=== PATIENT | male | born 1935 | race Caucasian/White ===

== ENCOUNTER 2016-05-11 16:51 | Inpatient (IN) | payer MEDICARE, BC ==
--- NOTE | ~2016-05-11 | DS ---
Discharge Summary [facility] [address] [place]. [address] NAME: CAR TA : 34 STATUS : DIS IN PAT#: [id number] AGE: 80 ADM/REG DATE : 05/11/16 MR#: [id number] REPORT SERV DATE: 05/15/16 DICTATED BY: ROCIO PASTOR DATE: 05/14/16 REPORT STATUS : Draft TRANSCRIBED BY: MODL DATE: 05/14/16 ADMISSION DATE: 05/11/2016 DISCHARGE DATE: 05/14/2016 CHIEF COMPLAINT: Increased pain and hypotension with abnormal MRI. DISCHARGE DIAGNOSES: 1. Suspected metastatic prostate cancer. 2. Back pain with bony metastases status post kyphoplasty of L2 vertebral body. 3. Anemia. 4. Anorexia with weight loss, likely due to malignancy. 5. Acute renal failure with mild non-anion gap metabolic acidosis. 6. Hypotension, on multiple antihypertensives. HISTORY OF PRESENT ILLNESS: Please see full H and P by nurse practitioner, Hanna Wilkinson, from admission. HOSPITAL COURSE: 1. New diagnosis of suspected metastatic prostate cancer. The patient was admitted to the hospital with MRI concerning for multiple metastatic spinal lesions. The patient did have a biopsy of a lymph node by CT guidance per Radiology. At this point, the final pathology is pending, but the suspicion is this will likely be metastatic prostate cancer. He will have followup with Dr. Perales early next week. In the interim, he has been started on prednisone 10 mg daily. 2. Back pain, likely due to L2 compression fracture in addition to other bony metastatic lesions. The patient did have L2 kyphoplasty done on May 13. His back pain has improved. We will send him home with continued narcotic regimen as well as walker. He overall has been doing well. PT has seen him and recommended home with family. 3. Anemia, suspect this is likely related to an aggressive underlying malignancy. This is present on admission status post 2 units of blood with stable hemoglobin in the 8s. Follow up with Dr. Perales next week to continue to monitor blood work. 4. Acute renal failure with right hydronephrosis with mild metabolic acidosis. This is related to underlying malignancy. The patient was seen by Urology, did not feel like any stenting or procedures were needed. This largely resolved with resuscitation with IV fluids and holding blood pressure medications. His creatinine was 1.76 on admission and 1.11 at discharge. The patient was on p.o. sodium bicarb with bicarb of 22 this time at discharge. 5. Hypotension. The patient has history of hypertension, was on multiple antihypertensive medications with blood pressures in the 70s on admission. His blood pressure resolved to normal with holding these blood pressure medications in addition to IV resuscitation. We will continue to hold his medications at discharge. 6. Anorexia weight loss, likely related to underlying malignancy. He has been started on Marinol. This again can be followed up outpatient with Dr. Perales. PERTINENT LABORATORY DATA: At discharge, hemoglobin is 8.1, white blood cell count 9.5, platelet count of 162. BMP is grossly unremarkable with creatinine of 1.11. Discharge Summary [address] [address] NAME: CAR TA : 34 STATUS : DIS IN PAT#: [id number] AGE: 80 ADM/REG DATE : 05/11/16 MR#: [id number] REPORT SERV DATE: 05/15/16 DICTATED BY: ROCIO PASTOR DATE: 05/14/16 REPORT STATUS : Draft TRANSCRIBED BY: EZEQUIEL DATE: 05/14/16 FOLLOWUP: Follow up will be with Dr. Perales next week. DISCHARGE MEDICATIONS: Marinol 2.5 mg p.o. b.i.d., Synthroid 150 mcg daily, Prilosec 20 mg at bedtime, prednisone 10 mg daily, multivitamin, Benadryl p.r.n. for sleep, aspirin 81 mg, Proscar 5 mg in the evening. I will verify this is okay to continue with Urology and [place]ard p.r.n. PERTINENT IMAGING: This admission, an MRI limited to lumbar spine prior to kyphoplasty did show widespread metastatic disease involving T11-S1 with associated large retroperitoneal nodes. There is evidence for some cortical disruption at L1, L2, L3. Consistent with early extraosseous spread which could explain some individual nerve compressions. Time spent on this discharge is greater than 30 minutes including discussion with Dr. Perales, the patient and family as well as shelter case manager. KENNEDI/EZEQUIEL Rocio Pastor MD / [id number]
--- NOTE | ~2016-05-11 | HP ---
History And Physical [place] [id number] [facility] [place]. [address] NAME: CAR TA : 34 STATUS : ADM IN [facility]#: [id number] AGE: 80 ADM/REG DATE : 05/11/16 MR#: [id number] REPORT SERV DATE: 05/11/16 DICTATED BY: MEHUL WILKINSON DATE: 05/11/16 REPORT STATUS : Draft TRANSCRIBED BY: MODL DATE: 05/11/16 DATE OF ADMISSION: 05/11/2016 REASON FOR ADMISSION: Increased pain and hypotension. HISTORY OF PRESENT ILLNESS: The patient is an 80-year-old gentleman, who was a direct admission from Dr. Perales of [facility] office. The patient presented to Dr. Perales's office as a new patient consult for metastatic cancer to the spine, anemia, acute renal failure, and hypotension. The patient presents with a history of hypertension, hypothyroidism, and benign prostatic hypertrophy. The patient stated an ongoing complaint of low back pain beginning approximately 03/2016. The patient stated he was having increased low back pain, had been seeing a chiropractor, had also noticed 25 pounds weight loss since 02/2016. The patient's hemoglobin checked at his primary care's office on 05/04/2016 was 7.7, the patient's hemoglobin today in Dr. Perales's office was 6.5. The patient's primary care physician also noted a creatinine of 1.8. Creatinine prior to that visit in November was 0.9. The patient does state that he has had an increase in low back pain with bilateral lower extremity pain. He denies shortness of breath at this time. He does state that he has had increased fatigue. He does state that he has had lightheadedness ongoing for the past two to three weeks. He denies any melena, any hematochezia, or hematuria. Blood pressure noted upon admission today is 88/53, does state that he has taken his blood pressure medication this a.m. REVIEW OF SYSTEMS: Otherwise negative review of system except what it is supposed listed above. PAST MEDICAL HISTORY: 1. Hypertension. 2. BPH. 3. Hypothyroidism. PAST SURGICAL HISTORY: 1. Hernia repair. 2. Bilateral Myringotomy with tube placement. SOCIAL HISTORY: The patient is . Retired in 02/2016. Quit smoking 30 years ago. Denies alcohol use. Denies illicit drug use. Has two children. The primary care physician is Dr. White in [place] [facility]. Oncology, Dr. Dex Perales. FAMILY HISTORY: The patient's mother of age 90 of heart disease. Father at 62 of emphysema and stroke. ALLERGIES: PENICILLIN AND VIAGRA. PHYSICAL EXAMINATION: VITAL SIGNS: O2 sats 94% on room air, pulse is 72, blood pressure is 88/53, and respirations are 18. History And Physical [address] [address] NAME: CAR TA : 34 STATUS : ADM IN PAT#: [id number] AGE: 80 ADM/REG DATE : 05/11/16 MR#: [id number] REPORT SERV DATE: 05/11/16 DICTATED BY: MEHUL WILKINSON DATE: 05/11/16 REPORT STATUS : Draft TRANSCRIBED BY: EZEQUIEL DATE: 05/11/16 GENERAL: This patient is alert and oriented in no acute distress. NECK: No JVD. No nodes. LUNGS: Bilaterally clear. No wheezes, rales, or rhonchi. HEART: Regular rate and rhythm. ABDOMEN: Soft, nontender to touch. Bowel sounds are active. EXTREMITIES: No cyanosis. No edema. NEUROLOGICAL: The patient is alert and oriented. LABORATORY WORK: WBC is 7.5, hemoglobin 6.6, hematocrit 20.1, and platelet count is 181. IMAGING: To be obtained. ASSESSMENT AND PLAN: 1. Acute renal failure. Creatinine today is 1.8 as noted in the imaging that was obtained by Primary Care. The patient was noted with bilateral hydronephrosis. We will get a CT of the abdomen and pelvis today, gentle hydration. We will obtain a CT abdomen and pelvis today. The patient will need a renal ultrasound. We will reevaluate creatinine. Give IV hydration, recheck in a.m. 2. Hypotension. The patient does present with a history of hypertension. At this time, the patient's blood pressure is 88/53. We will hold blood pressure medications and continue to monitor the patient. 3. Anemia, acute. Hemoglobin at this time is 6.6. We will type and cross the patient for one unit of blood and continue to monitor. We will also obtain iron studies and transfuse as needed. 4. Metastatic spinal lesion as noted in imaging from primary care's office. Extensive osseous metastasis throughout the lumbar spine and upper sacrum. Relatively low T1 weighted and T2 weighted signal favors metastatic prostate cancer. We will re-image the patient this p.m. with CT noncontrast. Will need further imaging if creatinine lowers. We will consult Dr. Perales to see patient. 5. L2 compression fracture noted in [facility] records. The patient may need an orthopedic consult for possible kyphoplasty and we will provide hydrocodone, oxycodone, and Dilaudid p.r.n. as needed for pain. 6. Code. The patient is a full code at this time. The patient will be followed by Dr. Marco Pastor during his hospital stay. DICTATION ENDS HERE COLT/EZEQUIEL Mehul Wilkinson NP / [id number] CC: Dex Perales MD History And Physical [address] [address] NAME: CAR TA : 34 STATUS : ADM IN [facility]#: [id number] AGE: 80 ADM/REG DATE : 05/11/16 MR#: [id number] REPORT SERV DATE: 05/11/16 DICTATED BY: MEHUL WILKINSON DATE: 05/11/16 REPORT STATUS : Draft TRANSCRIBED BY: EZEQUIEL DATE: 05/11/16 Constantin White M.D.
--- NOTE | ~2016-05-11 | CN ---
Consultation Report [facility] [address] [place]. [address] NAME: CAR TA : 34 STATUS : ADM IN PAT#: [id number] AGE: 80 ADM/REG DATE : 05/11/16 MR#: [id number] REPORT SERV DATE: 05/12/16 DICTATED BY: SHANKAR DEL TORO JR. DATE: 05/12/16 REPORT STATUS : Draft TRANSCRIBED BY: MODL DATE: 05/12/16 CONSULT NOTE DATE OF CONSULTATION: 05/12/2016 DRY END OPERATOR: Shankar Del Toro MD. CHIEF COMPLAINT: Right-sided hydronephrosis. HISTORY OF PRESENT ILLNESS: Mr. Ta is an 80-year-old gentleman, who was admitted on 05/11/[address] Perales, oncologist here at [facility], who he saw on his office with what appears to be widespread metastatic cancer on CT scan and ultrasound. He had evidence of a large amount of lymphadenopathy in the right retroperitoneum causing hydronephrosis and obstruction of the right kidney with an elevated creatinine of 1.8. I was consulted to help with this patient's care based on the patient's PSA of 15 and the fact that he is on Proscar which means his PSA is more close to [address] scan findings of widespread bony metastasis and retroperitoneal adenopathy. This is felt to be likely a prostate malignancy. He is not having any significant right-sided flank pain and his creatinine has actually decreased this morning to 1.43. PAST MEDICAL HISTORY: Significant for hypertension, BPH, and hypothyroidism. PAST SURGICAL HISTORY: Hernia repair, bilateral myringotomy. SOCIAL HISTORY: He is . He is retired. He quit smoking 30 years ago. He denies alcohol use or illicit drug use. His and granddaughter are in the room with him today. REVIEW OF SYSTEMS: A 10-system review was performed, essentially negative other than that stated above. Pertinent negatives include no headache, no nausea, no vomiting, no chest pain, and no shortness of breath. Pertinent positives are he does have some urinary frequency, but this has been stable and he also has significant weight loss of 25 pounds since February of 2016. ALLERGIES: PENICILLIN AND VIAGRA. HOME MEDICATIONS: Are listed in the chart. Please see that list. PHYSICAL EXAMINATION: GENERAL: He is a well-nourished, well-developed male, in no acute distress. HEENT: Normocephalic and atraumatic. NECK: Symmetric. CHEST: Clear to auscultation bilaterally. HEART: Regular rate and rhythm. ABDOMEN: Soft, but distended, nontender. Normal bowel sounds. Consultation Report [place] [address] [place]. [address] NAME: CAR TA : 34 STATUS : ADM IN PAT#: [id number] AGE: 80 ADM/REG DATE : 05/11/16 MR#: [id number] REPORT SERV DATE: 05/12/16 DICTATED BY: SHANKAR DEL TORO JR. DATE: 05/12/16 REPORT STATUS : Draft TRANSCRIBED BY: EZEQUIEL DATE: 05/12/16 EXTREMITIES: Without cyanosis, clubbing, or edema. LABORATORY DATA: White blood cell count today is 7.7, hemoglobin 6.9 after 1 unit of blood transfusion, hematocrit 21.3, and platelet count of 165. Electrolytes within normal limits. BUN of 34 and creatinine 1.43. ASSESSMENT: Right-sided hydronephrosis from metastatic carcinoma of some type. RECOMMENDATIONS: I had a lengthy discussion with the patient and family as well as Dr. Perales about this and the options would include urinary ureteral stenting, percutaneous nephrostomy drainage of the right kidney versus continued observation based on the suspect that this is prostate cancer and would likely respond to Lupron and chemotherapy. The feeling now would be to watch the kidney and not intervene with stenting or percutaneous nephrostomy tube drainage. His creatinine is normalizing with hydration, and he is to have a biopsy of the retroperitoneal mass today with Dr. Swanson. I will continue to follow while the patient is here in the hospital. RAMSES/EZEQUIEL Shankar Del Toro Jr., M.D. / [id number] CC: MD Constantin Medina M.D.
[~2016-05-11 16:51] MED LIST: ALD250 PO; ASA 81 MG; FLOMAX4 PO; HYT2 PO; LEVOTHYROXIN200 MCG PO; MAX25 PO; MOBIC15 MG PO; OCUVITE PO; PRILO PO; PROSCAR5 PO; TYLENOL PM PO
[2016-05-11] MEDS ORDERED: ALD500 PO (17:28)
[2016-05-11] MEDS ORDERED: MAX25 PO (17:29)
[2016-05-11] MEDS ORDERED: LEVOTHYROXIN150 MCG PO (17:29)
[2016-05-11] MEDS ORDERED: PRESERVISION A1 EACH PO (17:29)
[2016-05-11] MEDS ORDERED: PROSCAR5 PO (17:30)
[2016-05-11] MEDS ORDERED: TYLENOL PM PO (17:30)
[2016-05-11] MEDS ORDERED: NAP500 PO (17:30)
[2016-05-11] MEDS ORDERED: PRILO PO (17:30)
[2016-05-11] MEDS ORDERED: ASAB PO (17:30)
[2016-05-11] MEDS ORDERED: NORCO1 TA1 PO (17:36)
[2016-05-11 17:42] LABS: HEMATOCRIT 20.1 % (40.0-51.0); HEMOGLOBIN 6.6 g/dL (13.6-17.8); INTERNATIONAL NORMAL RATI 1.3 UNITS (-); MEAN CORPUS HGB CONC 32.8 g/dL (32.0-36.0); MEAN CORPUSCULAR HEMOGLOB 29.1 pg (26.0-34.0); MEAN CORPUSCULAR VOLUME 88.5 fL (80-100); MEAN PLATELET VOLUME 9.5 fL (9.2-13.0); NUCLEATED RED BLOOD CELLS 1.6 /100WBC (0-0); PARTIAL THROMBO TIME 36.5 SEC (22.5-37.2); PLATELET COUNT 181 10/3/uL (150-400); PROTIME (NOT ORD) 16.4 SEC (12.0-14.5); RBC DISTRIBUTION WIDTH 17.4 % (12.0-16.0); RED CELL COUNT 2.27 10/6/uL (4.7-6.1); RETICULOCYTE COUNT 3.2 % (0.5-2.5); RETICULOCYTE COUNT ABSOLUTE 71.5 10/3/uL (20.2-119.8); WHITE BLOOD CELLS 7.4 10/3/uL (4.5-10.5)
[2016-05-11 17:44] LABS: MANUAL DIFF YES %
[2016-05-11 17:54] LABS: T PROTEIN (ELECT)(NOT OR 6.2 G/DL (6.0-8.5)
[2016-05-11 18:10] LABS: ANISOCYTOSIS 1+ (5-10/OIF) (0-5/OIF); BAND NEUTROPHILS 15 %; EOSINOPHILS 2 %; EOSINOPHILS ABSOLUTE (CALC) 0.15 10/3/uL (0.0-0.53); IMMATURE GRANS ABSOLUTE (CALC) 0.22 10/3/uL (0.0-0.11); LYMPHOCYTES 11 %; LYMPHOCYTES ABSOLUTE (CALC) 0.81 10/3/uL (0.67-4.30); METAMYELOCYTES 3 %; MONOCYTES 3 %; MONOCYTES ABSOLUTE (CALC) 0.22 10/3/uL (0.21-1.20); NEUTROPHILS ABSOLUTE (CALC) 5.99 10/3/uL (2.02-8.40); PLATELET ESTIMATE ADQ (ADEQUATE); POLYCHROMASIA 1+ (2-5/OIF) (0-1/OIF); SEGMENTED NEUTROPHIL (0) 66 %; TOTAL NUCLEATED CELLS 100
[2016-05-11 18:13] LABS: A/G RATIO 0.6 (0.7-1.9); ALBUMIN 2.4 G/DL (3.5-5.0); ALKALINE PHOSPHATASE 599 U/L (45-117); BUN (BLOOD UREA NITROGEN) 39 MG/DL (6-23); CALCIUM, SERUM 8.1 MG/DL (8.5-10.4); CHLORIDE, SERUM 104 MMOL/L (96-112); CO2 (CARBON DIOXIDE) 22 MMOL/L (24-34); CREATININE 1.76 MG/DL (0.70-1.30); FERRITIN 4407 NG/ML (26-388); FOLATE 7.4 NG/ML (>5.2); FREE T4 1.23 NG/DL (0.76-1.46); GFR AFRICAN AMERICAN 41 ML/MIN (>=60); GFR NON AFRICAN AMERICAN 35 ML/MIN (>=60); GLOBULIN 4.3 G/DL (2.5-4.1); GLUCOSE, SERUM 93 MG/DL (60-99); IRON BINDING CAPACITY 179 MCG/DL (250-450); IRON, SERUM 50 MCG/DL (35-150); PHOSPHORUS, SERUM 2.9 MG/DL (2.5-4.5); POTASSIUM, SERUM 4.4 MMOL/L (3.5-5.3); SGOT(AST) 56 U/L (5-40); SGPT(ALT) 16 U/L (5-65); SODIUM, SERUM 138 MMOL/L (135-148); TOTAL BILIRUBIN 0.9 MG/DL (0-1.2); TOTAL PROTEIN 6.7 G/DL (6.0-8.5)
[2016-05-12 05:06] LABS: HEMATOCRIT 21.3 % (40.0-51.0); MEAN CORPUS HGB CONC 32.4 g/dL (32.0-36.0); MEAN CORPUSCULAR HEMOGLOB 28.5 pg (26.0-34.0); MEAN PLATELET VOLUME 10.2 fL (9.2-13.0); NUCLEATED RED BLOOD CELLS 1.9 /100WBC (0-0); PLATELET COUNT 165 10/3/uL (150-400); RBC DISTRIBUTION WIDTH 16.8 % (12.0-16.0); RED CELL COUNT 2.42 10/6/uL (4.7-6.1); WHITE BLOOD CELLS 7.7 10/3/uL (4.5-10.5)
[2016-05-12 05:07] LABS: HEMOGLOBIN 6.9 g/dL (13.6-17.8); MANUAL DIFF YES %
[2016-05-12 05:21] LABS: BUN (BLOOD UREA NITROGEN) 34 MG/DL (6-23); CHLORIDE, SERUM 106 MMOL/L (96-112); CO2 (CARBON DIOXIDE) 21 MMOL/L (24-34); CREATININE 1.43 MG/DL (0.70-1.30); GFR AFRICAN AMERICAN 53 ML/MIN (>=60); GFR NON AFRICAN AMERICAN 46 ML/MIN (>=60); GLUCOSE, SERUM 81 MG/DL (60-99); POTASSIUM, SERUM 4.3 MMOL/L (3.5-5.3); SODIUM, SERUM 139 MMOL/L (135-148)
[2016-05-12 05:35] LABS: BAND NEUTROPHILS 7 %; BASOPHILS 1 %; BASOPHILS ABSOLUTE (CALC) 0.08 10/3/uL (0.0-0.16); EOSINOPHILS 4 %; EOSINOPHILS ABSOLUTE (CALC) 0.31 10/3/uL (0.0-0.53); IMMATURE GRANS ABSOLUTE (CALC) 1.16 10/3/uL (0.0-0.11); LYMPHOCYTES 9 %; LYMPHOCYTES ABSOLUTE (CALC) 0.69 10/3/uL (0.67-4.30); METAMYELOCYTES 9 %; MONOCYTES 10 %; MONOCYTES ABSOLUTE (CALC) 0.77 10/3/uL (0.21-1.20); MYELOCYTES 6 %; PLATELET ESTIMATE ADQ (ADEQUATE); RBC MORPHOLOGY NORM (NORMAL); SEGMENTED NEUTROPHIL (0) 54 %; TOTAL NUCLEATED CELLS 100
[2016-05-12 09:58] LABS: A/G 0.87 RATIO (0.9-2.10); ALB RELATIVE % 46.4 % (60.0-89.0); ALBUMIN (ELECTRO) 2.88 GM/DL (3.2-5.5); ALPHA 1 (ELECTRO) 0.55 GM/DL (0.1-0.4); ALPHA 1 RELAT % (NOT ORD) 8.8 % (1.0-4.0); ALPHA 2 RELAT % 19.4 % (4.5-26.0); BETA GLOBULIN (SPE) 0.83 GM/DL (0.60-1.30); BETA RELATIVE % 13.4 % (9.0-22.0); GAMMA GLOBULIN (SPE) 0.74 G/DL (0.70-1.60)
[2016-05-13 04:29] LABS: CALCIUM, SERUM 8.4 MG/DL (8.5-10.4); CHLORIDE, SERUM 105 MMOL/L (96-112); CO2 (CARBON DIOXIDE) 20 MMOL/L (24-34); CREATININE 1.31 MG/DL (0.70-1.30); GFR AFRICAN AMERICAN 59 ML/MIN (>=60); GFR NON AFRICAN AMERICAN 51 ML/MIN (>=60); POTASSIUM, SERUM 4.1 MMOL/L (3.5-5.3); SODIUM, SERUM 137 MMOL/L (135-148)
[2016-05-13 04:32] LABS: MEAN CORPUS HGB CONC 32.7 g/dL (32.0-36.0); MEAN CORPUSCULAR HEMOGLOB 28.1 pg (26.0-34.0); MEAN CORPUSCULAR VOLUME 85.9 fL (80-100); MEAN PLATELET VOLUME 9.9 fL (9.2-13.0); NUCLEATED RED BLOOD CELLS 0.8 /100WBC (0-0); PLATELET COUNT 176 10/3/uL (150-400); RBC DISTRIBUTION WIDTH 16.7 % (12.0-16.0); WHITE BLOOD CELLS 9.6 10/3/uL (4.5-10.5)
[2016-05-13 04:39] LABS: BUN (BLOOD UREA NITROGEN) 22 MG/DL (6-23); GLUCOSE, SERUM 98 MG/DL (60-99)
[2016-05-13 04:49] LABS: HEMATOCRIT 26.3 % (40.0-51.0); HEMOGLOBIN 8.6 g/dL (13.6-17.8); MANUAL DIFF YES %; RED CELL COUNT 3.06 10/6/uL (4.7-6.1)
[2016-05-13 07:13] LABS: BAND NEUTROPHILS 3 %; EOSINOPHILS 3 %; EOSINOPHILS ABSOLUTE (CALC) 0.29 10/3/uL (0.0-0.53); LYMPHOCYTES 10 %; LYMPHOCYTES ABSOLUTE (CALC) 0.96 10/3/uL (0.67-4.30); METAMYELOCYTES 1 %; MONOCYTES 2 %; MONOCYTES ABSOLUTE (CALC) 0.19 10/3/uL (0.21-1.20); NEUTROPHILS ABSOLUTE (CALC) 8.06 10/3/uL (2.02-8.40); PLATELET ESTIMATE ADQ (ADEQUATE); RBC MORPHOLOGY NORM (NORMAL); SEGMENTED NEUTROPHIL (0) 81 %; TOTAL NUCLEATED CELLS 100
[2016-05-14 05:33] LABS: BUN (BLOOD UREA NITROGEN) 18 MG/DL (6-23); CALCIUM, SERUM 8.2 MG/DL (8.5-10.4); CHLORIDE, SERUM 105 MMOL/L (96-112); CO2 (CARBON DIOXIDE) 22 MMOL/L (24-34); CREATININE 1.11 MG/DL (0.70-1.30); GFR AFRICAN AMERICAN 72 ML/MIN (>=60); GFR NON AFRICAN AMERICAN 62 ML/MIN (>=60); GLUCOSE, SERUM 97 MG/DL (60-99); SODIUM, SERUM 138 MMOL/L (135-148)
[2016-05-14 06:04] LABS: HEMATOCRIT 24.9 % (40.0-51.0); HEMOGLOBIN 8.1 g/dL (13.6-17.8); MEAN CORPUS HGB CONC 32.5 g/dL (32.0-36.0); MEAN CORPUSCULAR HEMOGLOB 28.8 pg (26.0-34.0); MEAN PLATELET VOLUME 9.8 fL (9.2-13.0); NUCLEATED RED BLOOD CELLS 0.5 /100WBC (0-0); PLATELET COUNT 162 10/3/uL (150-400); RBC DISTRIBUTION WIDTH 16.7 % (12.0-16.0); RED CELL COUNT 2.81 10/6/uL (4.7-6.1); WHITE BLOOD CELLS 9.5 10/3/uL (4.5-10.5)
[2016-05-14 06:07] LABS: MEAN CORPUSCULAR VOLUME 88.6 fL (80-100)
[2016-05-14 06:08] LABS: MANUAL DIFF YES %
[2016-05-14 07:09] LABS: BAND NEUTROPHILS 9 %; IMMATURE GRANS ABSOLUTE (CALC) 1.71 10/3/uL (0.0-0.11); LYMPHOCYTES 19 %; LYMPHOCYTES ABSOLUTE (CALC) 1.81 10/3/uL (0.67-4.30); METAMYELOCYTES 9 %; MONOCYTES 1 %; MYELOCYTES 9 %; NEUTROPHILS ABSOLUTE (CALC) 5.89 10/3/uL (2.02-8.40); PLATELET ESTIMATE ADQ (ADEQUATE); SEGMENTED NEUTROPHIL (0) 53 %; TOTAL NUCLEATED CELLS 100
[2016-05-14 07:10] LABS: RBC MORPHOLOGY NORM (NORMAL); TOXIC GRANULATION 1+
[2016-05-14] MEDS ORDERED: MARI2.5 PO (11:07)
[2016-05-14] MEDS ORDERED: P10 PO (11:08)
== END 2016-05-14 13:26 | disposition home or self-care (01) | DRG 516 ==
LOC: 4SO 16:51 → 4EA 05-13 14:17
PROVIDERS: Internal Medicine
PROC: 30233N0 Transfusion of Autologous Red Blood Cells into Peripheral Vein, Percutaneous Approach (ICD-10-PCS; 2016-05-11)
PROC: 07BD3ZX Excision of Aortic Lymphatic, Percutaneous Approach, Diagnostic (ICD-10-PCS; principal; 2016-05-12)
PROC: 0QS03ZZ Reposition Lumbar Vertebra, Percutaneous Approach (ICD-10-PCS; 2016-05-13)
PROC: 0QU03JZ Supplement Lumbar Vertebra with Synthetic Substitute, Percutaneous Approach (ICD-10-PCS; 2016-05-13)
DX: M48.56XA Collapsed vertebra, not elsewhere classified, lumbar region, initial encounter for fracture (principal); C79.51 Secondary malignant neoplasm of bone; N17.9 Acute kidney failure, unspecified; E87.2 Acidosis; I95.9 Hypotension, unspecified; N13.30 Unspecified hydronephrosis; C61 Malignant neoplasm of prostate; R63.0 Anorexia; D64.9 Anemia, unspecified; Z68.30 Body mass index [BMI] 30.0-30.9, adult
CPT/HCPCS: 22514; 36415; 38505; 71010; 72148-52; 74176; 76775; 77012; 80048; 80053; 82607; 82728; 82746; 83540; 83550; 83615; 83735; 84100; 84155; 84165; 84439; 84443; 85025; 85045; 85610; 85730; 86850; 86900; 86901; 86920; 88305; 88333; 88342; 97162-GP; 99152; 99153; A9270-GY; G8978-CK-GP; G8979-CJ-GP; J1170; J2250; J2405; J3010; P9016; Q9967